=== PATIENT | male | born 1965 | race African-American/Black ===

== ENCOUNTER 2021-04-01 23:22 | Emergency (ER) | payer MEDICAID ==
[~2021-04-01] VITALS: Ht 177.8 cm; Wt 85.0 kg
[2021-04-02] MEDS ORDERED: ACETAMINOPHEN 325MG TABLET PO ONE
[2021-04-02] MEDS ORDERED: ACET-2708 MT (01:37)
[2021-04-02] MEDS ORDERED: LIDO700A15 TP (01:37)
[2021-04-02] MEDS ORDERED: BACL-141 MT (01:37)
[2021-04-02] MEDS ORDERED: LIDOCAINE 5% PATCH TOP SCH (01:45)
[2021-04-02 02:21] VITALS: BP 156/79
== END 2021-04-02 02:28 | disposition home or self-care (01) ==
LOC: ER 23:43
DX: S76.012A Strain of muscle, fascia and tendon of left hip, initial encounter (principal); S76.011A Strain of muscle, fascia and tendon of right hip, initial encounter; E11.9 Type 2 diabetes mellitus without complications; V29.9XXA Motorcycle rider (driver) (passenger) injured in unspecified traffic accident, initial encounter; Y93.89 Activity, other specified; Y92.89 Other specified places as the place of occurrence of the external cause; Y99.8 Other external cause status
CPT/HCPCS: 73522; 73560; 99284